=== PATIENT | female | born 1955 | race Caucasian/White ===

== ENCOUNTER 2020-03-05 08:38 | Outpatient (CLI) | payer OTHER ==
--- NOTE | 2020-03-05 09:24 | MRI ---
EXAM: MRI right shoulder PROVIDED CLINICAL HISTORY: Pain COMPARISON: None FINDINGS: There is a small focus of low-grade partial thickness undersurface tearing involving the posterior di stal supraspinatus tendon. The components of the rotator cuff appear otherwise intact. The long head biceps tendon appears intact and normally located. The amount of fluid within the glenohumeral joint appears physiologic. The glenoid labrum and glenohu meral articular cartilage are suboptimally evaluated in the absence of joint distention but appear grossly normal. There is greater than physiologic subacromial subdeltoid bursal fluid. Acromioclavicular joint osteoa rthrosis is minimal. No focal concerning regional marrow or muscular signal abnormality is apparent. IMPRESSION: 1. Small low-grade partial thickness undersurface tear involving the posterior distal supraspinatus t endon. 2. Greater than physiologic subacromial subdeltoid bursal fluid, which may reflect bursitis.
== END 2020-03-05 08:39 | disposition home or self-care (01) ==
LOC: TBSIIMAG 08:38
PROVIDERS: ATTEND Orthopaedic Surgery
DX: M25.511 Pain in right shoulder (principal); M75.111 Incomplete rotator cuff tear or rupture of right shoulder, not specified as traumatic